=== PATIENT | female | born 1955 | race Caucasian/White ===

== ENCOUNTER 2024-11-03 10:13 | Emergency (ER) | payer MEDICARE, SELFPAY ==
[2024-11-03 10:19] VITALS: BP 122/93; PULSE 75; RESP 20; TEMP 36.7; O2SAT 98
[2024-11-03 10:24] VITALS: BP 122/93; PULSE 75; RESP 20; TEMP 36.7; O2SAT 98
[2024-11-03 11:03] LABS: Glucose Negative (Negative)
[2024-11-03 11:11] LABS: RBC 0-2 HPF (0-2)
[2024-11-03 11:12] LABS: C & S Indicated? No
[2024-11-03 11:15] LABS: Abs Immature Grans 0.01 10^3/uL (0.0-0.06); HCT 43.6 % (36.0-46.0); HGB 14.2 g/dL (11.2-15.7); Immature Grans % 0.2 %; MCH 31.5 pg (27.0-33.0); MCHC 32.6 % (32.0-36.0); MCV 97 fL (80-95); MPV 8.5 fL (8.0-11.0); Platelet Count 266 10^3/uL (130-400); RBC 4.51 10^6/uL (3.93-5.22); RDW 12.8 % (11.7-14.6); RDW-SD 45.9 fL; WBC 5.21 10^3/uL (4.4-10.8)
[2024-11-03] MEDS: Normal Saline - Diluent 50 ML VIAL IJ (11:21)
[2024-11-03] MEDS: Omnipaque 350 MG/ML 100 ML BTL IJ (11:21)
--- NOTE | 2024-11-03 11:25 | DI.CT_ITS ---
Exam(s) CT ABDOMEN PELVIS W EXAM: CT ABDOMEN PELVIS W CLINICAL HISTORY: RLQ tenderness; L flank CVA ttp - appy vs renal. TECHNIQUE: Imaging Protocol: Axial computed tomography images with coronal and sagittal reformatted images were created and reviewed CONTRAST MATERIAL: Intravenous: Omnipaque 350 Contrast volume:75 ml Oral: no COMPARISON: No exams were available for comparison FINDINGS: ABDOMEN and PELVIS: Lung Bases: No acute findings. Liver: Normal density. Multiple cysts. No suspicious mass. Gallbladder and biliary tract: No radiodense calculus. No wall thickening or pericholecystic fluid. No biliary dilation. Pancreas: Normal density. No abnormal calcifications or inflammatory process. No evidence of mass. Spleen: Normal. Kidneys: Normal size, contour and axis. 6 millimeter nonobstructing stone noted in the mid right kidney. No obstructive uropathy. Large left parapelvic cysts. No suspicious masses seen. Adrenal glands: No masses seen. Vasculature: Abdominal aorta non-dilated. Soft tissues: Unremarkable. Bladder: Empty. No gross wall thickening. No calculi.No focal mass. Bowel: Tiny hiatal hernia. No obstruction. The colon is nearly free of stool throughout. There is a question of mild wall thickening. No surrounding inflammation. There is no evidence of appendicitis. Peritoneal cavity: No ascites. No focal collection. No mesenteric inflammatory response. No free air. Bones: Degenerative changes in the spine and hips. Reproductive organs: Hysterectomy. Lymph nodes: No pathologically enlarged lymph nodes. IMPRESSION:: The colon is nearly empty. The question of wall thickening. Clinical correlation recommended. There is no evidence of appendicitis. There is a 6 millimeter nonobstructing stone of the mid right kidney. The preliminary [facility] report was reviewed. RADIATION DOSE DELIVERED: Total DLP DATA REPOSITORY: All CT scans at this facility are submitted to the National Radiology Data Registry (NRDR) Dose Index Registry (DIR) with the [employer] ([employer]). RADIATION OPTIMIZATION: All CT scans at this facility use at least one of these dose optimization techniques: automated exposure control; mA and/or kV adjustment per patient size (includes targeted exams where dose is matched to clinical indication); or iterative reconstruction.
[2024-11-03 11:35] LABS: ALT 31 U/L (14-59); AST 19 U/L (15-37); Albumin 3.9 g/dL (3.4-5.0); Alkaline Phosphatase 88 U/L (46-116); Anion Gap 9.0 mmol/L (3-11); BUN 14 mg/dL (7-18); Bilirubin, Total 0.7 mg/dL (0.2-1.0); CO2 32.0 mmol/L (21.0-32.0); Calcium 9.0 mg/dL (8.5-10.1); Chloride 102 mmol/L (98-107); Estimated GFR 78.72 (mL/min/1.73m2); Glucose 104 mg/dL (74-106); Lipase 37 U/L (<78); Magnesium 2.2 mg/dL (1.8-2.4); Potassium 3.0 mmol/L (3.5-5.1); Sodium 143 mmol/L (136-145); Total Protein 7.8 g/dL (6.4-8.2)
--- NOTE | 2024-11-03 12:01 | DI.[facility]_ITS ---
PROCEDURE INFORMATION: Exam: CT Abdomen And Pelvis With Contrast Exam date and time: 11/03/2024 11:15 AM Age: 69 years old Clinical indication: Abdominal pain; Tenderness; Right lower quadrant (rlq); Additional info: Rlq tenderness; L flank CVA ttp - appy vs renal TECHNIQUE: Imaging protocol: Computed tomography of the abdomen and pelvis with contrast. Contrast material: OMNIPAQUE 350; Contrast volume: 75 ml; Contrast route: INTRAVENOUS (IV); COMPARISON: No relevant prior studies available. FINDINGS: Diaphragm: Small hiatal hernia Liver: Multiple simple cysts in the liver . No follow-up imaging recommended . Mass in the right lobe of the liver measures 3 x 2 cm and 25 Hounsfield units. Series 8, image 20. Not clearly a cyst. 6 cm cyst in the left lobe of the liver Gallbladder and biliary ducts: The gallbladder is unremarkable Pancreas: Normal. No ductal dilation. Spleen: Normal. No splenomegaly. Adrenal glands: Normal. No mass. Kidneys and ureters: Pararenal cysts in the left kidney Stomach and bowel: Low-attenuation bowel wall thickening is seen throughout the colon consistent with colitis. Differential diagnosis includes infectious and inflammatory etiologies.. Appendix: No evidence of appendicitis. Intraperitoneal space: Unremarkable. No free air. No significant fluid collection. Vasculature: Unremarkable. No abdominal aortic aneurysm. Lymph nodes: Unremarkable. No enlarged lymph nodes. Urinary bladder: Unremarkable as visualized. Reproductive: Unremarkable as visualized. Bones/joints: Unremarkable. No acute fracture. Soft tissues: Unremarkable. IMPRESSION: 1. Low-attenuation bowel wall thickening is seen throughout the colon consistent with colitis. Differential diagnosis includes infectious and inflammatory etiologies.. 2. Mass in the right lobe of the liver measures 3 x 2 cm and 25 Hounsfield units. Series 8, image 20. Not clearly a cyst. Recommend liver MRI Dictated and Authenticated by: Derik Smith MD. Orderin Elyse Martin MD
--- NOTE | 2024-11-03 12:06 | W.ED.GENAD ---
Discharge Plan Disposition Patient Disposition: Home Condition: Stable Discharge Details Clinical Impression: Colitis, Hypokalemia Primary Care Provider: Ivonne,Local ED Provider: Mario Pappas Home Meds and New Rx's Prescriptions: No Action atorvastatin [Lipitor] 40 mg tablet 40 mg PO DAILY Discharge Instructions Instructions: Colitis, Azithromycin (Systemic), High Potassium Diet, Ondansetron Additional Instructions: You were seen in the emergency department for your abdominal pain with nausea vomiting and diarrhea, appears you have colitis on your CT I am treating him with azithromycin for an infectious diarrhea, we sent you home with some nausea medicine called ondansetron to place under the tongue 20 to 30 minutes before oral intake. Incidentally, you have a cyst in your liver that warrants ultrasound or MRI, please have your primary care provider order this study. Please return for any severe increase in pain with fever, intractable nausea or vomiting, syncope, dizziness, chest pain or shortness of breath. Please eat a high potassium diet, or take OTC supplements for about a week. Discharge Data Discharge Date/Time-TO BE ENTERED AT DEPARTURE: 11/03/24 13:04 HPI General Date/Time Provider Initiated Documentation: 11/03/24 10:28. HPI Narrative: 69 year-old female presents to ED today by POV/ambulating with a chief complaint of lower abdominal pain and flank pain, worse with eating, and some nausea/vomiting/diarrhea with onset 1 week ago. Quality described as generalized abdominal pain, increased urinary frequency/urgency, no radiation to intractable nausea/vomiting, fever, severe pain, chest pain, shortness of breath. Severity is described as 2/10. Palliating factors include nothing specific attempted. Provoking factors include nothing specific. Events leading up to the incident/Associated Symptoms: Patient endorses good PO intake. Patient not anticoagulated. Related Data Home Medications ?Medication ?Instructions ?Recorded ?Confirmed atorvastatin 40 mg tablet (Lipitor) 40 mg PO DAILY 11/03/24 11/03/24 Allergies Allergy/AdvReac Type Severity Reaction Status Date / Time No Known Allergies Allergy Unverified 11/03/24 10:18 General Stated Complaint: Nausea/Vomit/Diar DIOMEDES: 3 Review of Systems All systems reviewed & are unremarkable except as noted in HPI and below Exam Narrative Exam Narrative: GENERAL APPEARANCE: Well-nourished, non-toxic, awake and alert, atraumatic, no acute distress. SKIN: Warm, pink, dry, intact, without rashes/lesions/ulcerations. HEAD: Normocephalic, atraumatic, normal hair distribution for gender/age. EYES: Normal conjunctiva, no exudates on lids/lashes. ENT: Nares patent, no circumoral cyanosis, no facial swelling NECK: Supple, trachea midline, painless cervical ROM. LUNGS/CHEST: Lungs CTA bilaterally, non-labored respirations, normal A/P diameter, symmetrical expansion, no chest wall deformity HEART (CV/PV): Regular rate and rhythm without murmur, no peripheral edema, no JVD. ABDOMEN: Soft, non-distended, no guarding, right lower quadrant abdominal tenderness without McBurney's point tenderness or rebound tenderness, left CVA tenderness to percussion. MSK: Normal ROM, no swelling/deformity to bilateral UEs or LEs, moving all extremities without weakness, no cyanosis, spine midline without tenderness, normal curvature. NEURO: Mental Status AAOx4 - alert to person, place, time, events No facial droop, no forehead involvement. Motor: No focal weakness - strength 5/5 in bilateral UEs and LEs, proximal and distal, symmetric. Sensory: sensation intact to light touch globally. Gait normal: patient ambulated without ataxia into ED room. PSYCH: euthymic, cooperative, pleasant, appropriate speech Course Vital Signs Vital signs: Vital Signs Temperature 36.7 C 11/03/24 10:19 Pulse 75 11/03/24 10:19 Respiratory Rate 20 11/03/24 10:19 Blood Pressure 122/93 H 11/03/24 10:19 Pulse Oximetry 98 11/03/24 10:19 Temperature 36.7 C 11/03/24 10:24 Temperature Source Oral 11/03/24 10:24 Pulse 75 11/03/24 10:24 Respiratory Rate 20 11/03/24 10:24 Blood Pressure 122/93 H 11/03/24 10:24 Blood Pressure Position Sitting 11/03/24 10:24 Pulse Oximetry 98 11/03/24 10:24 Oxygen Delivery Method Room Air 11/03/24 10:24 Oxygen Flow Rate 0 11/03/24 10:24 Pain Level 2 11/03/24 10:24 Lab/Test Results Lab/Test Results: Laboratory Tests Range/Units 11/03/24 11/03/24 10:45 11:06 WBC (4.4-10.8) 10^3/uL 5.21 RBC (3.93-5.22) 10^6/uL 4.51 Hgb (11.2-15.7) g/dL 14.2 Hct (36.0-46.0) % 43.6 MCV (80-95) fL 97 H MCH (27.0-33.0) pg 31.5 MCHC (32.0-36.0) % 32.6 RDW (11.7-14.6) % 12.8 Plt Count (130-400) 10^3/uL 266 MPV (8.0-11.0) fL 8.5 Immature Gran % % 0.2 Neutrophils % % 50.8 Lymphocytes % % 38.0 Monocytes % % 7.3 Eosinophils % % 3.3 Basophils % % 0.4 Nucleated RBC % (0.0-0.3) % 0.0 Absolute Neutrophils (1.2-6.7) 10^3/uL 2.65 Absolute Lymphocytes (1.2-3.4) 10^3/uL 1.98 Absolute Monocytes (0.1-0.8) 10^3/uL 0.38 Absolute Eosinophils (0.0-0.7) 10^3/uL 0.17 Absolute Basophils (0.0-0.2) 10^3/uL 0.02 VBG Lactate (<or=2.0) mmol/L 1.4 Sodium (136-145) mmol/L 143 Potassium (3.5-5.1) mmol/L 3.0 L Chloride (98-107) mmol/L 102 Carbon Dioxide (21.0-32.0) mmol/L 32.0 Anion Gap (3-11) mmol/L 9.0 BUN (7-18) mg/dL 14 Creatinine (0.55-1.02) mg/dL 0.8 Est GFR (CKD-EPI 2020) (mL/min/1.73m2) 78.72 Glucose (74-106) mg/dL 104 Calcium (8.5-10.1) mg/dL 9.0 Magnesium (1.8-2.4) mg/dL 2.2 Total Bilirubin (0.2-1.0) mg/dL 0.7 AST (15-37) U/L 19 ALT (14-59) U/L 31 Alkaline Phosphatase (46-116) U/L 88 Total Protein (6.4-8.2) g/dL 7.8 Albumin (3.4-5.0) g/dL 3.9 Lipase (<78) U/L 37 Urine Color (Yellow) Yellow Urine Clarity (Clear) Clear Urine pH (5-8) 8.5 H Ur Specific [place] (1.005-1.025) 1.015 Urine Protein (Neg-Trace) mg/dL 30 H Urine Ketones (Negative) mg/dL Trace H Urine Blood (Negative) Negative Urine Nitrite (Negative) Negative Urine Bilirubin (Negative) Negative Urine Urobilinogen (Up to 0.2) mg/dL 0.2 Ur Leukocyte Esterase (Negative) Negative Urine RBC (0-2) HPF 0-2 Urine WBC (0-5) HPF 3-5 Ur Epithelial Cells (Negative) HPF Rare Urine Crystals (Negative) HPF Negative Urine Bacteria (Negative) HPF Rare Urine Casts (Negative) LPF Negative Urine Mucus (Negative) Trace Ur Culture Indicated? No Urine Glucose (Negative) mg/dL Negative Medical Decision Making This dictation utilizes [id number] dictation software and may contain unedited grammatical errors. 69 year-old female presents to ED today by POV/ambulating with a chief complaint of lower abdominal pain and flank pain, worse with eating, and some nausea/vomiting/diarrhea with onset 1 week ago. Quality described as generalized abdominal pain, increased urinary frequency/urgency, no radiation to intractable nausea/vomiting, fever, severe pain, chest pain, shortness of breath. Severity is described as 2/10. Palliating factors include nothing specific attempted. Provoking factors include nothing specific. Events leading up to the incident/Associated Symptoms: Patient endorses good PO intake. Patients' medical history: Negative, otherwise healthy. Family and social history: Noncontributory. Pertinent exam findings / vital signs include left-sided abdominal tenderness to percussion at CVA, RLQ tenderness on palpiation, without Rovsing's, negative Rodriguez sign, benign cardiopulmonary status. Differential / pathologies of concern include gastroenteritis, colitis, gastritis, viral syndrome, UTI, diverticulitis. Diagnostic studies of: - CBC, CMP, lactate, magnesium, lipase, UA, CT ABD/pelvis with contrast. - CBC shows no leukocytosis - Lactate negative - CMP shows mild hypokalemia which was repleted here in the ER - Lipase negative - Magnesium within normal limits - UA shows no UTI - CT shows some low-attenuation bowel wall thickening throughout the colon probable colitis, reasonable to treat with azithromycin for greater than 1 week onset of nausea vomiting diarrhea, discussed incidental finding of liver cyst Interventions of: -3 tab zofran to go. Plan to Rx azithromycin 500mg QD x3d ED Course/Assessment/Plan: 69-year-old female presents with 2 out of 10 abdominal pain for greater than a week with some mild nausea and vomiting and diarrhea, CT shows colitis, discussed with her incidental liver cyst findings and recommend outpatient follow-up, provided Zofran to go as well as 3 days of 500 mg azithromycin to treat for possible infectious colitis, counseled the patient to keep up with her p.o. intake and to take some potassium supplements and high potassium diet and follow-up with her PCP, strict return criteria for intractable nausea or vomiting, severe increased abdominal pain. Findings not consistent with diverticulitis, sepsis, pancreatitis, appendicitis, pyelonephritis, UTI. Disposition of hypokalemia, colitis. Patient verbalized understanding of the plan and return to ED criteria and engaged in shared decision making. Medical Records Medical records reviewed: Yes I reviewed the patient's medical records. Imaging Data Radiologic Study: Attestation: I personally reviewed and interpreted this imaging study as follows: Imaging: CT Scan Radiologist's impression: Exam: CT Abdomen And Pelvis With Contrast Exam date and time: 11/03/2024 11:15 AM Age: 69 years old Clinical indication: Abdominal pain; Tenderness; Right lower quadrant (rlq); Additional info: Rlq tenderness; L flank CVA ttp - appy vs renal TECHNIQUE: Imaging protocol: Computed tomography of the abdomen and pelvis with contrast. Contrast material: OMNIPAQUE 350; Contrast volume: 75 ml; Contrast route: INTRAVENOUS (IV); COMPARISON: No relevant prior studies available. FINDINGS: Diaphragm: Small hiatal hernia Liver: Multiple simple cysts in the liver . No follow-up imaging recommended . Mass in the right lobe of the liver measures 3 x 2 cm and 25 Hounsfield units. Series 8, image 20. Not clearly a cyst. 6 cm cyst in the left lobe of the liver Gallbladder and biliary ducts: The gallbladder is unremarkable Pancreas: Normal. No ductal dilation. Spleen: Normal. No splenomegaly. Adrenal glands: Normal. No mass. Kidneys and ureters: Pararenal cysts in the left kidney Stomach and bowel: Low-attenuation bowel wall thickening is seen throughout the colon consistent with colitis. Differential diagnosis includes infectious and inflammatory etiologies.. Appendix: No evidence of appendicitis. Intraperitoneal space: Unremarkable. No free air. No significant fluid collection. Vasculature: Unremarkable. No abdominal aortic aneurysm. Lymph nodes: Unremarkable. No enlarged lymph nodes. Urinary bladder: Unremarkable as visualized. Reproductive: Unremarkable as visualized. Bones/joints: Unremarkable. No acute fracture. Soft tissues: Unremarkable. IMPRESSION: 1. Low-attenuation bowel wall thickening is seen throughout the colon consistent with colitis. Differential diagnosis includes infectious and inflammatory etiologies.. 2. Mass in the right lobe of the liver measures 3 x 2 cm and 25 Hounsfield units. Series 8, image 20. Not clearly a cyst. Recommend liver MRI Dictated and Authenticated by: Derik Smith MD. Lab Data Lab results reviewed: Yes I reviewed the patient's lab results. Labs: Laboratory Tests Range/Units 11/03/24 11/03/24 10:45 11:06 WBC (4.4-10.8) 10^3/uL 5.21 RBC (3.93-5.22) 10^6/uL 4.51 Hgb (11.2-15.7) g/dL 14.2 Hct (36.0-46.0) % 43.6 MCV (80-95) fL 97 H MCH (27.0-33.0) pg 31.5 MCHC (32.0-36.0) % 32.6 RDW (11.7-14.6) % 12.8 Plt Count (130-400) 10^3/uL 266 MPV (8.0-11.0) fL 8.5 Immature Gran % % 0.2 Neutrophils % % 50.8 Lymphocytes % % 38.0 Monocytes % % 7.3 Eosinophils % % 3.3 Basophils % % 0.4 Nucleated RBC % (0.0-0.3) % 0.0 Absolute Neutrophils (1.2-6.7) 10^3/uL 2.65 Absolute Lymphocytes (1.2-3.4) 10^3/uL 1.98 Absolute Monocytes (0.1-0.8) 10^3/uL 0.38 Absolute Eosinophils (0.0-0.7) 10^3/uL 0.17 Absolute Basophils (0.0-0.2) 10^3/uL 0.02 VBG Lactate (<or=2.0) mmol/L 1.4 Sodium (136-145) mmol/L 143 Potassium (3.5-5.1) mmol/L 3.0 L Chloride (98-107) mmol/L 102 Carbon Dioxide (21.0-32.0) mmol/L 32.0 Anion Gap (3-11) mmol/L 9.0 BUN (7-18) mg/dL 14 Creatinine (0.55-1.02) mg/dL 0.8 Est GFR (CKD-EPI 2020) (mL/min/1.73m2) 78.72 Glucose (74-106) mg/dL 104 Calcium (8.5-10.1) mg/dL 9.0 Magnesium (1.8-2.4) mg/dL 2.2 Total Bilirubin (0.2-1.0) mg/dL 0.7 AST (15-37) U/L 19 ALT (14-59) U/L 31 Alkaline Phosphatase (46-116) U/L 88 Total Protein (6.4-8.2) g/dL 7.8 Albumin (3.4-5.0) g/dL 3.9 Lipase (<78) U/L 37 Urine Color (Yellow) Yellow Urine Clarity (Clear) Clear Urine pH (5-8) 8.5 H Ur Specific [place] (1.005-1.025) 1.015 Urine Protein (Neg-Trace) mg/dL 30 H Urine Ketones (Negative) mg/dL Trace H Urine Blood (Negative) Negative Urine Nitrite (Negative) Negative Urine Bilirubin (Negative) Negative Urine Urobilinogen (Up to 0.2) mg/dL 0.2 Ur Leukocyte Esterase (Negative) Negative Urine RBC (0-2) HPF 0-2 Urine WBC (0-5) HPF 3-5 Ur Epithelial Cells (Negative) HPF Rare Urine Crystals (Negative) HPF Negative Urine Bacteria (Negative) HPF Rare Urine Casts (Negative) LPF Negative Urine Mucus (Negative) Trace Ur Culture Indicated? No Urine Glucose (Negative) mg/dL Negative PFSH All Active Problems (Updated 11/03/24 @ 12:51 by PABLO Braun) Hypokalemia (Acute) Colitis (Acute) Social History Smoking/Tobacco Use Status: Never Smoking risk assessment performed?: Yes Drug use: Never Housing: house Do you feel safe at home: Yes Do you feel safe in your relationship?: Yes
[2024-11-03 12:12] VITALS: BP 121/54; PULSE 67; RESP 17; O2SAT 96
[2024-11-03 13:02] VITALS: BP 120/51; PULSE 67; RESP 10; O2SAT 99
[2024-11-03] MEDS: Ondansetron O.D.T. 4 MG TABEF, 3 TABS/BTL PO (13:02)
== END 2024-11-03 13:04 | disposition home or self-care (01) ==
PROVIDERS: Emergency Medicine; Emergency Provider Physician Assistant
DX: K52.9 Noninfective gastroenteritis and colitis, unspecified (principal); E87.6 Hypokalemia
CPT/HCPCS: 99285; 99284; 36415; 80053; 83690; 74177; 81003; 81015; 83605; 83735; 85025; J3490